=== PATIENT | female | born 1960 | race Caucasian/White ===

== ENCOUNTER 2018-02-25 11:08 | Emergency (ER) | payer OTHER ==
[~2018-02-25] VITALS: Ht 172.7 cm; Wt 117.9 kg
[~2018-02-25 11:08] MED LIST: ALIVE WOMEN'S1 EACH PO; ANUSOL-HC25 MG R; BACTRIM DS 8001 TA1 PO; CLINDAMYCIN150 MG PO; DIFLUCAN150 MG PO; HARD NAILS 2.51 CAP PO; MACROBID100 M1 PO; NKHM PO; NORCO 5-325 TA1 EACH PO; PYRIDIUM200 M1 PO; VICODIN 5/500 505 MG PO
[2018-02-25 11:28] LABS: BASO # 0.1 10*3/uL (0.0-0.1); BASO % 0.4 % (0.0-1.0); EOS # 0.2 10*3/uL (0.0-0.4); EOS % 1.8 % (1.0-4.0); HEMATOCRIT 45.6 % (37.0-47.0); HEMOGLOBIN 15.2 g/dl (12.0-16.0); LYMPH # 2.8 10*3/uL (1.3-4.4); LYMPH % 22.2 % (27.0-41.0); MEAN CELL VOLUME 98.5 fl (81.0-99.0); MEAN CORPUSCULAR HGB 32.8 pg (27.0-31.0); MEAN CORPUSCULAR HGB CONC 33.3 g/dl (33.0-37.0); MEAN PLATELET VOLUME 12.1 fl (9.6-12.3); MONO % 7.7 % (3.0-9.0); NEUT # 8.5 10*3/uL (2.3-7.9); NEUT % 67.3 % (47.0-73.0); PLATELET COUNT AUTOMATED 233 10*3/uL (130-400); RED BLOOD COUNT 4.63 10*6/uL (4.10-5.10); RED CELL DISTRI WIDTH 13.4 % (0-14.5); WHITE BLOOD COUNT 12.6 10*3/uL (4.8-10.8)
[2018-02-25 11:48] LABS: ALBUMIN 3.3 gm/dl (3.1-4.5); ALKALINE PHOSPHATASE 128 U/L (45-117); BUN 14 mg/dl (7-24); CHLORIDE 106 mmol/L (98-107); CREATININE 0.84 mg/dL (0.55-1.02); LIPASE 254 U/L (73-393); POTASSIUM 4.6 mmol/L (3.5-5.1); SGOT/AST 170 IU/L (3-35); SGPT/ALT 96 U/L (12-78); SODIUM 140 mmol/L (136-145); TOTAL PROTEIN 8.2 gm/dL (6.4-8.2)
[2018-02-25 12:23] LABS: BILIRUBIN NEGATIVE (NEGATIVE); BLOOD 2+ (NEGATIVE); CLARITY CLEAR (CLEAR); COLOR YELLOW (YELLOW); GLUCOSE NEGATIVE (NEGATIVE); KETONE NEGATIVE (NEGATIVE); LEUKO ESTERASE NEGATIVE (NEGATIVE); NITRITE NEGATIVE (NEGATIVE); SPECIFIC GRAVITY 1.025 (1.005-1.030); UROBILINOGEN 0.2 E.U./dl (0.2-1.0)
[2018-02-25 12:35] LABS: BACTERIA 2+; EPITHELIAL CELLS 45-50
[2018-02-25] MEDS ORDERED: ZOFRAN4 MG PO (13:19)
[2018-02-25] MEDS ORDERED: NAPROSYN500 MG PO (13:19)
[2018-02-25] MEDS ORDERED: FLAGYL500 MG PO (13:19)
[2018-02-25] MEDS ORDERED: CIPRO500 MG PO (13:19)
== END 2018-02-25 13:40 | disposition home or self-care (01) ==
LOC: ED 11:08
PROVIDERS: Nurse Practitioner Family
DX: K52.9 Noninfective gastroenteritis and colitis, unspecified (principal); R03.0 Elevated blood-pressure reading, without diagnosis of hypertension; R94.5 Abnormal results of liver function studies; E66.9 Obesity, unspecified; Z79.899 Other long term (current) drug therapy; Z98.51 Tubal ligation status

== ENCOUNTER 2018-10-01 11:38 | Emergency (ER) | payer OTHER ==
[~2018-10-01] VITALS: Ht 175.2 cm; Wt 90.7 kg
--- NOTE | ~2018-10-01 | EKG ---
[place], [place] ELECTROCARDIOGRAM REPORT NAME: ERIKA CARMONA UNIT #: [id number] ROOM: DOCTOR: EPIPHANY DRAFT REPORT BIRTHDATE: [birth year] [facility] Test Date: 2018-10-01 Test Time: 11:43:24 Pat Name: ERIKA CARMONA Department: Room: Gender: F [employer] Licensee: : 1960 Requested By: TIM HARP Order Number: [id number] Reading MD: Chantelle Del Cid MD Measurements Intervals [place] Rate: 70 P: 72 PA: 181 QRS: 51 QRSD: 113 T: 59 QT: 423 QTc: 457 Interpretive Statements Sinus rhythm Ventricular premature complex Borderline intraventricular conduction delay No previous ECG available for comparison Electronically Signed On 10-02-2018 16:01:16 PDT by Chantelle Del Cid MD CM:EKGRPT:ELECTROCARDIOGRAM REPORT 1143 1601 TIM LUI DRAFT REPORT TIM HARP M.D.
--- NOTE | ~2018-10-01 | EKG ---
[place], [place] ELECTROCARDIOGRAM REPORT NAME: ERIKA CARMONA UNIT #: [id number] ROOM: DOCTOR: EPIPHANY DRAFT REPORT BIRTHDATE: [birth year] [facility] Test Date: 2018-10-01 Test Time: 14:41:00 Pat Name: ERIKA CARMONA Department: Room: Gender: F Road Crossing Guard: Margarita Almanza : 1960 Requested By: TIM HARP Order Number: [id number] Reading MD: Chantelle Del Cid MD Measurements Intervals [place] Rate: 64 P: 67 [place]: 181 QRS: 47 QRSD: 105 T: 81 QT: 420 QTc: 434 Interpretive Statements Sinus rhythm No previous ECG available for comparison Electronically Signed On 10-02-2018 16:02:34 PDT by Chantelle Del Cid MD CM:EKGRPT:ELECTROCARDIOGRAM REPORT [id number] 1602 TIM LUI DRAFT REPORT TIM HARP M.D.
[~2018-10-01 11:38] MED LIST changes: +CIPRO500 MG PO; +FLAGYL500 MG PO; +NAPROSYN500 MG PO; +ZOFRAN4 MG PO
[2018-10-01 12:10] LABS: BASO % 0.5 % (0.0-1.0); EOS # 0.1 10*3/uL (0.0-0.4); EOS % 1.1 % (1.0-4.0); HEMATOCRIT 47.2 % (37.0-47.0); HEMOGLOBIN 15.8 g/dl (12.0-16.0); LYMPH # 1.9 10*3/uL (1.3-4.4); LYMPH % 24.1 % (27.0-41.0); MEAN CELL VOLUME 96.3 fl (81.0-99.0); MEAN CORPUSCULAR HGB 32.2 pg (27.0-31.0); MEAN CORPUSCULAR HGB CONC 33.5 g/dl (33.0-37.0); MEAN PLATELET VOLUME 11.3 fl (9.6-12.3); MONO # 0.6 10*3/uL (0.1-1.0); MONO % 7.3 % (3.0-9.0); NEUT # 5.2 10*3/uL (2.3-7.9); NEUT % 66.7 % (47.0-73.0); PLATELET COUNT AUTOMATED 213 10*3/uL (130-400); RED CELL DISTRI WIDTH 12.9 % (0-14.5); WHITE BLOOD COUNT 7.9 10*3/uL (4.8-10.8)
[2018-10-01 12:19] LABS: ACT PARTIAL THROMBO TIME 27.7 SECONDS (20.8-31.5)
[2018-10-01 12:24] LABS: ALBUMIN 3.1 gm/dl (3.1-4.5); ALKALINE PHOSPHATASE 96 U/L (45-117); BUN 15 mg/dl (7-24); CHLORIDE 107 mmol/L (98-107); CREATININE 0.91 mg/dL (0.55-1.02); POTASSIUM 3.6 mmol/L (3.5-5.1); SGOT/AST 47 IU/L (3-35); SGPT/ALT 49 U/L (12-78); SODIUM 140 mmol/L (136-145); TOTAL PROTEIN 7.6 gm/dL (6.4-8.2)
[2018-10-01 12:30] LABS: TROPONIN I < 0.015 ng/ml (<0.045)
[2018-10-01] MEDS ORDERED: GOOD NEIGHBOR M25 MG PO (17:41)
== END 2018-10-01 17:55 | disposition home or self-care (01) ==
LOC: ED 11:38
PROVIDERS: Emergency Medicine
DX: H83.09 Labyrinthitis, unspecified ear (principal); E66.9 Obesity, unspecified

== ENCOUNTER → 2019-04-21 | Outpatient (CLI) | payer OTHER ==
[~2019-04-21] MED LIST changes: +GOOD NEIGHBOR M25 MG PO
== END | disposition home or self-care (01) ==
LOC: US 09:28
DX: K76.0 Fatty (change of) liver, not elsewhere classified (principal)

== ENCOUNTER 2020-10-20 16:07 | Emergency (ER) | payer OTHER ==
[~2020-10-20] VITALS: Ht 175.2 cm; Wt 127.0 kg
== END 2020-10-20 18:17 | disposition left against medical advice (07) ==
LOC: ED 16:07
DX: R10.9 Unspecified abdominal pain (principal); Z53.21 Procedure and treatment not carried out due to patient leaving prior to being seen by health care provider

== ENCOUNTER 2021-11-06 17:46 | Emergency (ER) | payer OTHER ==
[~2021-11-06] VITALS: Wt 136.1 kg
[2021-11-06] MEDS ORDERED: ATORVASTATIN CA10 M1 PO (18:04)
[2021-11-06] MEDS ORDERED: LISINOPRIL20 MG PO (18:04)
[2021-11-06] MEDS ORDERED: OMEPRAZOLE10 MG PO (18:04)
[2021-11-06] MEDS ORDERED: VITAMIN D3125 MCG PO (18:05)
[2021-11-06] MEDS ORDERED: PROVENTIL HFA6.7 GM INH (18:05)
[2021-11-06] MEDS ORDERED: VITAMIN E180 M1 PO (18:05)
[2021-11-06] MEDS ORDERED: HYDROCODONE-AC1 EAC1 PO (20:09)
== END 2021-11-06 20:24 | disposition home or self-care (01) ==
LOC: ED 17:46
DX: S62.101A Fracture of unspecified carpal bone, right wrist, initial encounter for closed fracture (principal); Z79.899 Other long term (current) drug therapy; Z98.51 Tubal ligation status; W01.0XXA Fall on same level from slipping, tripping and stumbling without subsequent striking against object, initial encounter; Y93.89 Activity, other specified; Y92.89 Other specified places as the place of occurrence of the external cause; Y99.8 Other external cause status

== ENCOUNTER → 2021-11-16 | Outpatient (CLI) | payer OTHER ==
[~2021-11-16] MED LIST changes: +ATORVASTATIN CA10 M1 PO; +HYDROCODONE-AC1 EAC1 PO; +LISINOPRIL20 MG PO; +OMEPRAZOLE10 MG PO; +PROVENTIL HFA6.7 GM INH; +VITAMIN D3125 MCG PO; +VITAMIN E180 M1 PO
== END | disposition home or self-care (01) ==
LOC: ORTHO 01:44
PROVIDERS: ATTEND Orthopaedic Surgery
DX: S52.531D Colles' fracture of right radius, subsequent encounter for closed fracture with routine healing (principal); X58.XXXD Exposure to other specified factors, subsequent encounter

== ENCOUNTER → 2021-11-23 | Outpatient (CLI) | payer OTHER | END | disposition home or self-care (01) | LOC: ORTHO 01:22 | PROVIDERS: ATTEND Orthopaedic Surgery | DX: S52.531D Colles' fracture of right radius, subsequent encounter for closed fracture with routine healing (principal); X58.XXXD Exposure to other specified factors, subsequent encounter ==

== ENCOUNTER 2024-06-09 17:06 | Emergency (ER) | payer OTHER, MEDICAID ==
[~2024-06-09] VITALS: Ht 175.2 cm; Wt 113.4 kg
[2024-06-09] MEDS ORDERED: SODIUM CHLORIDE 0.9% 1,000 ML IV ONE (18:10)
[2024-06-09 18:28] LABS: BASO % 0.2 % (0.0-1.0); HEMATOCRIT 44.9 % (37.0-47.0); MEAN CELL VOLUME 94.3 fl (81.0-99.0); MEAN CORPUSCULAR HGB 30.7 pg (27.0-31.0); MEAN CORPUSCULAR HGB CONC 32.5 g/dl (33.0-37.0); MEAN PLATELET VOLUME 11.1 fl (9.6-12.3); MONO # 0.5 10*3/uL (0.1-1.0); MONO % 10.8 % (3.0-9.0); NEUT # 3.8 10*3/uL (2.3-7.9); NEUT % 77.2 % (47.0-73.0); PLATELET COUNT AUTOMATED 147 10*3/uL (130-400); RED BLOOD COUNT 4.76 10*6/uL (4.10-5.10); RED CELL DISTRI WIDTH 13.5 % (0-14.5); WHITE BLOOD COUNT 4.9 10*3/uL (4.8-10.8)
[2024-06-09 18:47] LABS: BUN 12 mg/dl (9-23); CHLORIDE 102 mmol/L (98-107); POTASSIUM 3.6 mmol/L (3.4-5.1)
== END 2024-06-09 19:25 | disposition home or self-care (01) ==
LOC: ED 17:06
PROVIDERS: Nurse Practitioner Family
DX: J10.1 Influenza due to other identified influenza virus with other respiratory manifestations (principal); Z20.822 Contact with and (suspected) exposure to COVID-19; Z87.442 Personal history of urinary calculi

== ENCOUNTER 2024-06-11 21:58 | Emergency (ER) | payer OTHER, MEDICAID ==
[2024-06-12] MEDS ORDERED: AZITHROMYCIN 250 MG TAB PO ONE ×2 (02:45→03:00)
[2024-06-12] MEDS ORDERED: AVPAK AZITHROM250 MG PO (02:47)
== END 2024-06-12 03:16 | disposition home or self-care (01) ==
LOC: ED 21:58
DX: J11.1 Influenza due to unidentified influenza virus with other respiratory manifestations (principal); Z87.442 Personal history of urinary calculi